=== PATIENT | female | born 1955 | race Caucasian/White ===

== ENCOUNTER 2018-01-30 16:25 | Emergency (ER) | payer OTHER ==
[2018-01-30 16:32] VITALS: BP 130/89
--- NOTE | 2018-01-30 16:50 | EDPHY ---
HPI/HX/ROS/PE/MDM Narrative: CHIEF COMPLAINT: Left hand laceration HPI: The patient is a 62 y/o female arriving with her daughter complaining of a laceration to her left hand. She was trying to cut open a zip tie with a pair of old scissors when they slipped. The tip of the scissors punctured the thenar eminence of her left hand. She denies other injuries, weakness, or paresthesias in her hand or fingers. She is normally healthy. No anticoagulants. REVIEW OF SYSTEMS: Aside from elements discussed in the HPI, a comprehensive 10-point review of systems was reviewed and is negative. PMH: Denies SOCIAL HISTORY: Daughter at bedside. PHYSICAL EXAM: General:Patient is alert, in no acute distress. ENT:Eyes are normal to inspection. ENT inspection normal. Neck: Normal inspection. Full range of motion. Respiratory:No respiratory distress. Cardiovascular: Strong peripheral pulses. Normal cap refill. Skin: Normal color. No rash. Warm and dry. Extremities: 1cm linear laceration to thenar eminence of volar aspect of left hand, neurovascularly intact. Otherwise normal appearance. Full range of motion. Neuro: Oriented x3. Normal motor function. Normal sensory function. ED Course: This is a healthy 62 y/o female who presents with an accidental isolated puncture wound to the thenar eminence of her left hand. She is neurovascularly intact. Plan for wound care and repair with Dermabond. Tetanus vaccination administered. Procedure: Laceration repair. Verbal consent was obtained from the patient. The linear 1cm laceration on the left thenar eminence along the volar aspect was cleaned with standard ED protocol. There were no deep structures involved. No tendon injury was identified. The wound was repaired with Dermabond. The wound repair was simple. The procedure was performed by myself, Dr. Murray. Patient will be discharged with standard laceration care and follow up instructions. Return precautions discussed. She is comfortable with this plan. General Time Seen by Provider: 01/30/18 16:46 Initial Vital Signs: Initial Vital Signs Temperature (C) 36.8 C 01/30/18 16:30 Heart Rate 63 01/30/18 16:30 Respiratory Rate 18 01/30/18 16:30 Blood Pressure 130/89 H 01/30/18 16:30 O2 Sat (%) 98 01/30/18 16:30 O2 Delivery Mode Room Air Allergies/Adverse Reactions: penicillin G Allergy (Verified 01/30/18 16:29) Home Medications: Medication Instructions Recorded NK [No Known Home Meds] 01/30/18 Departure - Departure Disposition: Home, Routine, Self-Care Clinical Impression: Puncture wound of hand, left Qualifiers: Encounter type: initial encounter Foreign body presence: without foreign body Qualified Code(s): S61.432A - Puncture wound without foreign body of left hand, initial encounter Condition: Good Instructions: Puncture Wound (ED), Skin Adhesive Care (ED) Additional Instructions: 1. Keep bandage clean, dry, and in place for the next 24-48 hours. 2. Okay to gently clean area with soap and water afterwards, but do not scrub glue. It will break down on its own over the next week. Do not apply Bacitracin or any other topical ointments to glue as they will likely break it down prematurely. 3. Follow up with your primary care provider for any unimproved symptoms over the next week. 4. Return to the ED for severe pain, dramatic increase in redness/swelling around wound, if you develop pus draining from wound, weakness or numbness in your thumb, or other worsening of condition. Referrals: ASA MOROCHO [Primary Care Provider] - As per Instructions Report Scribed for: Jason Murray Report Scribed by: Tanya Mendez Date of Report: 01/30/18 Time of Report: 16:47 Physician Review and Approval Statement: Portions of this note were transcribed by an ED scribe. I personally performed the history, physical exam, and medical decision making; and confirm the accuracy of the information in the transcribed note.
[2018-01-30] MEDS ORDERED: TDAP ADULT 0.5 ML INJ (BOOSTRIX) IM ONE (16:53)
[2018-01-30] MEDS ORDERED: SKIN ADHESIVE (DERMABOND) 1 EACH TP ONE (17:09)
== END 2018-01-30 17:58 | disposition home or self-care (01) ==
PROC: 0HQGXZZ Repair Left Hand Skin, External Approach (ICD-10-PCS; principal; 2018-01-30)
DX: S61.432A Puncture wound without foreign body of left hand, initial encounter (principal); Z23 Encounter for immunization; W27.2XXA Contact with scissors, initial encounter